=== PATIENT | male | born 1995 | race Caucasian/White ===

== ENCOUNTER 2020-11-16 18:00 | Emergency (ER) | payer MEDICAID, SELFPAY ==
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
[2020-11-16 18:30] VITALS: BP 112/72; PULSE 72; RESP 16; TEMP 37.2; O2SAT 100; BMI 19.5
[2020-11-16 20:35] VITALS: BP 105/57; PULSE 52; RESP 16; O2SAT 99
[2020-11-16] MEDS: Diphth,Pertus(ACell),Tet Adult 0.5 ML SYRINGE IM (21:18)
--- NOTE | 2020-11-16 21:26 | PC.NURSE ---
TDAP GIVEN. ABRASIONS CLEANSED AND DRESSINGS APPLIED.
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
== END 2020-11-16 22:05 | disposition home or self-care (01) ==
PROVIDERS: Emergency Provider Internal Medicine
DX: S50.312A Abrasion of left elbow, initial encounter (principal); S80.212A Abrasion, left knee, initial encounter; V28.0XXA Motorcycle driver injured in noncollision transport accident in nontraffic accident, initial encounter; Y93.89 Activity, other specified; Y92.414 Local residential or business street as the place of occurrence of the external cause; Y99.9 Unspecified external cause status
CPT/HCPCS: 73080; 73562; 90471; 90715; 99284